=== PATIENT | female | born 1985 | race African-American/Black ===

== ENCOUNTER 2023-06-22 19:10 | Emergency (ER) | payer SELFPAY, OTHER ==
[2023-06-22] MEDS ORDERED: Acetaminophen 500 MG TAB ONE (20:41)
[2023-06-22] MEDS ORDERED: Ibuprofen 200 MG TAB ONE (20:41)
== END 2023-06-22 20:58 | disposition home or self-care (01) ==
LOC: CSHERS 19:10
DX: S13.4XXA Sprain of ligaments of cervical spine, initial encounter (principal); V89.2XXA Person injured in unspecified motor-vehicle accident, traffic, initial encounter
CPT/HCPCS: 70450; 70486; 72125; 72131